=== PATIENT | female | born 1970 | race Caucasian/White ===

== ENCOUNTER 2017-04-11 21:31 | Emergency (ER) | payer OTHER ==
[~2017-04-11] VITALS: Ht 167.6 cm; Wt 139.9 kg
[2017-04-11] VITALS (7 sets, daily range): BP systolic 154–178; BP diastolic 72–106; PULSE 70–78; RESP 16–20; TEMP 98.2; O2SAT 98–99
[~2017-04-11 21:31] MED LIST: CYCL-36 PO; VICOTAB4 PO; Z.0.NO CURRENT MEDS
[2017-04-11] MEDS ORDERED: SODIUM CHLORIDE 0.9% FLUSH 10 ML FLUSH IVF PRN (22:00)
--- NOTE | 2017-04-11 22:04 | PD ---
HPI Chief Complaint: Headache Time Seen by Provider: 21:54 Travel History International Travel<30 days: No Contact w/Intl Traveler<30days: No Traveled to known affect area: No History of Present Illness HPI 46-year-old female presents to the emergency department for complaint of one day of headache. Patient states she has noticed her blood pressure is elevated. Patient has had some sinus congestion and has used Claritin-D in the past but today used DayQuil without symptomatically. Symptoms typical of her sinus infections but no epistaxis no fever chills no yellow green sinus drainage ; has had bloody streaked mucous with sinus drainage. Also notes headache is not sudden onset, not thunderclap, not worst ever. Patient denies any visual disturbance. Patient's had no change in mentation or speech. Patient denies any neck pain. Patient's had no fever or chills. Patient denies chest pain palpitations shortness of breath. Patient denies nausea vomiting. Patient's had no upper extremity or lower extremity numbness tingling or weakness or ataxia of gait. Patient denies personal history of any known medical conditions although she states she has had providers tell her blood pressure is elevated in the past. Patient's rhythm prescribed antihypertensives. Patient is not followed by primary care provider. Patient's past history is significant for morbid obesity and left forearm surgery and C-sections. Patient does rate headache 7/10 in intensity. No family history of headaches subarachnoid hemorrhage stroke however does have a father with history of CAD and stent placement. PFSH Past Medical History Narrative Medical Morbid obesity, left forearm surgery ; no tobacco use; nursing notes reviewed ?: Not LMP: TWO WEEKS AGO Tubal Ligation: Yes Past Surgical History Section: Yes (X 2) Social History Alcohol Use: Yes (OCCASIONALLY) Tobacco Use: No Substance Use: No Allergies-Medications (Allergen,Severity, Reaction): Coded Allergies: No Known Allergies (Verified , 09/21/06) Reported Meds & Prescriptions Reported Meds & Active Scripts Active Zithromax Tri-Gilberto (Azithromycin) 500 Mg Dspk 500 Mg PO DAILY Norvasc (Amlodipine Besylate) 5 Mg Tab 5 Mg PO DAILY Flexeril (Cyclobenzaprine HCl) 10 Mg Tab 10 Mg PO TID Vicoprofen (Hydrocodone Bitartrate/Ibuprofen) 7.5 Mg/200 Mg Tab 1 Tab PO QIDPRN FOR PAIN Reported No Current Meds (Miscellaneous Medication) [facility] [place] Review of Systems Except as stated in HPI: all other systems reviewed are Neg General / Constitutional: No: Fever, Chills Eyes: No: Diploplia, Blurred Vision, Photophobia HENT: Positive: Headaches, Congestion, No: Sore Throat, Neck Stiffness, Neck Pain Cardiovascular: No: Chest Pain or Discomfort, Palpitations, Tachycardia, Diaphoresis, Syncope, Dyspnea on exertion, Edema Respiratory: No: Cough, Shortness of Breath, Wheezing Gastrointestinal: No: Nausea, Vomiting, Abdominal Pain Genitourinary: No: Dysuria, Flank Pain Musculoskeletal: No: Myalgias, Arthralgias, Edema, Pain Skin: No Rash Neurologic: Positive: Headache, No: Weakness, Dizziness, Syncope, Focal Abnormalities, Coordination Problem, Ataxia, Change in Mentation, Slurred Speech , Paresthesia, Incontinence, Seizures Psychiatric: No: Anxiety Endocrine: No: Heat Intolerance Hematologic/Lymphatic: No: Easy Bruising Physical Exam Narrative GENERAL: Well-developed well-nourished female in no acute distress no respiratory distress triage blood pressure 170/106 SKIN: Warm and dry. HEAD: Atraumatic. Normocephalic. EYES: Pupils equal and round. No scleral icterus. No injection or drainage. Extraocular muscles intact. Funduscopic exam no papilledema. ENT: No nasal bleeding or discharge. Mucous membranes pink and moist. Airway is patent. Bilateral tympanic membranes without redness dullness or loss of landmarks. NECK: Trachea midline. No JVD. Supple no meningismus no nuchal rigidity. CARDIOVASCULAR: Regular rate and rhythm. RESPIRATORY: No accessory muscle use. Clear to auscultation. Breath sounds equal bilaterally. GASTROINTESTINAL: Abdomen soft, non-tender, nondistended. Hepatic and splenic margins not palpable. MUSCULOSKELETAL: Extremities without clubbing, cyanosis, or edema. No obvious deformities. No pitting edema. Bilateral radial and dorsalis pedis pulses 2+ to palpation. NEUROLOGICAL: Awake and alert. No obvious cranial nerve deficits. Motor grossly within normal limits. Five out of 5 muscle strength in the arms and legs. No pronator drift. No limb ataxia. Sensory exam grossly intact as tested. Normal speech. PSYCHIATRIC: Appropriate mood and affect; insight and judgment normal. Data Data Last Documented VS Vital Signs Date Time Temp Pulse Resp B/P Pulse Ox O2 Delivery O2 Flow Rate FiO2 04/11/17 23:23 75 16 161/80 04/11/17 23:13 99 Room Air 04/11/17 21:37 98.2 Orders Complete Blood Count With Diff (04/11/17 21:54) Basic Metabolic Panel (Bmp) (04/11/17 21:54) Ecg Monitoring (04/11/17 21:54) Iv Access Insert/Monitor (04/11/17 21:54) Oximetry (04/11/17 21:54) Sodium Chloride 0.9% Flush (Ns Flush) (04/11/17 22:00) Ed Urine Pregnancytest Poc (04/11/17 21:54) Urinalysis - C+S If Indicated (04/11/17 21:54) Azithromycin (Zithromax) (04/11/17 23:00) Amlodipine (Norvasc) (04/11/17 23:00) Labs Laboratory Tests Test 04/11/17 04/11/17 22:10 22:50 White Blood Count 13.1 TH/MM3 Red Blood Count 4.93 MIL/MM3 Hemoglobin 12.9 GM/DL Hematocrit 39.8 % Mean Corpuscular Volume 80.7 FL Mean Corpuscular Hemoglobin 26.2 PG Mean Corpuscular Hemoglobin 32.5 % Concent Red Cell Distribution Width 17.0 % Platelet Count 384 TH/MM3 Mean Platelet Volume 8.0 FL Neutrophils (%) (Auto) 69.3 % Lymphocytes (%) (Auto) 20.0 % Monocytes (%) (Auto) 5.8 % Eosinophils (%) (Auto) 3.7 % Basophils (%) (Auto) 1.2 % Neutrophils # (Auto) 9.0 TH/MM3 Lymphocytes # (Auto) 2.6 TH/MM3 Monocytes # (Auto) 0.8 TH/MM3 Eosinophils # (Auto) 0.5 TH/MM3 Basophils # (Auto) 0.2 TH/MM3 CBC Comment DIFF FINAL Differential Comment Sodium Level 140 MEQ/L Potassium Level 4.0 MEQ/L Chloride Level 105 MEQ/L Carbon Dioxide Level 28.3 MEQ/L Anion Gap 7 MEQ/L Blood Urea Nitrogen 12 MG/DL Creatinine 0.73 MG/DL Estimat Glomerular Filtration 86 ML/MIN Rate Random Glucose 118 MG/DL Calcium Level 9.1 MG/DL Urine Color YELLOW Urine Turbidity CLEAR Urine pH 6.0 Urine Specific [place] 1.014 Urine Protein NEG mg/dL Urine Glucose (UA) NEG mg/dL Urine Ketones NEG mg/dL Urine Occult Blood NEG Urine Nitrite NEG Urine Bilirubin NEG Urine Leukocyte Esterase NEG Urine Squamous Epithelial 0-5 /hpf Cells Urine Amorphous Sediment SMALL Urine Bacteria OCC /hpf Urine Mucus OCC /lpf Microscopic Urinalysis Comment CULT NOT INDICATED MDM Medical Decision Making Medical Screen Exam Complete: Yes Emergency Medical Condition: Yes Medical Record Reviewed: Yes Interpretation(s) CBC & BMP Diagram 04/11/17 22:10 Vital Signs Date Time Temp Pulse Resp B/P Pulse Ox O2 Delivery O2 Flow Rate FiO2 04/11/17 22:14 78 16 160/83 99 Room Air 04/11/17 22:00 72 178/88 04/11/17 21:37 98.2 70 20 170/106 98 UA: wnl poc hcg: negative Differential Diagnosis Hypertension, hypertensive urgency, CVA, TIA, renal insufficiency, sinusitis, adverse medication reaction, viral syndrome Narrative Course 46-year-old female with untreated/question undiagnosed hypertension presents to the emergency department with headache sinus pressure and hypertension after taking [id number] decongestant medication for congestion without focality on physical exam and normal neurologic exam. Initial blood pressure 170/106; on repeat 160/83. Basic specimens collected and repeat blood pressures obtained. Diagnosis Primary Impression: Hypertension Qualified Code: I10 - Essential hypertension Additional Impressions: Headache Qualified Code: G44.209 - Tension-type headache, not intractable, unspecified chronicity pattern Sinusitis Referrals: [facility] call for appointment Patient Instructions: General Instructions Additional Instructions: Increase fluid hydration Avoid salt containing additives to food Follow-up with primary care provider May follow up with his failure health as needed Take blood pressure medication as prescribed check blood pressure once daily Complete course of antibiotic as prescribed May use cool mist vaporizer at bedside Avoid systemic decongestant such as Claritin-D or NyQuil or DayQuil; may use as needed for short course Afrin nasal decongestant spray 1 spray to each nostril twice daily for up to 2-3 days avoid use. 3 days to avoid rebound congestion Return to the emergency department for a concerns or change in condition May take acetaminophen/Tylenol every 4 hours as needed for fever 100.4F or greater May take as needed as tolerated ibuprofen/Advil/Motrin 600 mg as often as every 6 hours; or may use high-dose 800 mg as often as every 8 hours avoiding high- dose use for greater than 2-3 days Med/Other Pt SpecificInfo: Prescription(s) given Scripts Azithromycin (Zithromax Tri-Gilberto)500 Mg Oatr117 Mg PO DAILY #1 DSPK Ref 0 Prov:Leonela Hamm MD 04/11/17 Amlodipine (Norvasc)5 Mg Tab5 Mg PO DAILY #30 TAB Ref 0 Prov:Leonela Hamm MD 04/11/17 Disposition: 01 DISCHARGE HOME Condition: Stable Leonela Hamm MD Apr 11, 2017 22:03
[2017-04-11 22:19] LABS: BASOPHIL # 0.2 TH/MM3 (0-0.2); BASOPHIL % 1.2 % (0.0-2.0); EOSINOPHIL # 0.5 TH/MM3 (0-0.4); EOSINOPHIL % 3.7 % (0.0-4.0); HEMATOCRIT 39.8 % (35.0-46.0); LYMPHOCYTE # 2.6 TH/MM3 (1.0-4.8); MEAN CELL VOLUME 80.7 FL (80.0-100.0); MEAN CORPUSCULAR HEMOGLOBIN 26.2 PG (27.0-34.0); MEAN CORPUSCULAR HGB CONC 32.5 % (32.0-36.0); MONO % 5.8 % (0.0-8.0); NEUT % 69.3 % (16.0-70.0); PLATELET COUNT 384 TH/MM3 (150-450); RED BLOOD COUNT 4.93 MIL/MM3 (4.00-5.30); WHITE BLOOD COUNT 13.1 TH/MM3 (4.0-11.0)
[2017-04-11] MEDS ORDERED: AMLO5 PO (22:22)
[2017-04-11 22:29] LABS: BICARBONATE 28.3 MEQ/L (21.0-32.0)
[2017-04-11 22:33] LABS: HEMO FLAGS DIFF FINAL
[2017-04-11] MEDS ORDERED: ZITHTAB2 PO (22:52)
[2017-04-11] MEDS ORDERED: amLODIPine BESYLATE 5 MG TAB PO ONE (23:00)
[2017-04-11] MEDS ORDERED: AZITHROMYCIN 250 MG TAB PO ONE (23:00)
[2017-04-11 23:07] LABS: BLOOD, URINE NEG (NEG); GLUCOSE,URINE NEG (NEG); KETONE, URINE NEG (NEG); NITRITE,URINE NEG (NEG)
[2017-04-11 23:25] LABS: BACTERIA, URINE OCC /hpf; SQUAMOUS EPITHELIAL CELL URINE 0-5 /hpf (0-5); URINE COLOR YELLOW (YELLW/STRAW)
[2017-04-11 23:26] LABS: COMMENT (UR) CULT NOT INDICATED; CULTURE IF INDICATED CULT NOT INDICATED; MUCUS URINE OCC /lpf (OCC)
[2017-04-11] MEDS ORDERED: KETOROLAC TROMETHAMINE 30 MG/ML (IVP) VIAL IV PUSH ONE (23:30)
[2017-04-11] MEDS ORDERED: CLAR10CA3 PO (23:53)
== END 2017-04-11 23:55 | disposition home or self-care (01) ==
LOC: PHED 21:31
DX: I10 Essential (primary) hypertension (principal); G44.209 Tension-type headache, unspecified, not intractable; J32.9 Chronic sinusitis, unspecified
CPT/HCPCS: 80048; 81001; 84703; 85025; 99284